=== PATIENT | female | born 1965 | race Caucasian/White ===

== ENCOUNTER 2023-04-24 19:07 | Emergency (ER) | payer OTHER ==
[2023-04-24] MEDS: AMOX TR/POT CLAV 875MG/125MG TABLETS (FP) PO ONE (20:19)
[2023-04-24] MEDS ORDERED: ACETAMINOPHEN 325 MG TABLET (FP) ONE (20:36)
[2023-04-24] MEDS ORDERED: DIPHTH,PERTUSS(ACELL),TET 0.5 ML DISP.SYRIN IM ONE (20:37)
[2023-04-24 20:44] VITALS: TEMP 98.2
[2023-04-24] MEDS: ACETAMINOPHEN 500 MG TABLET (FP) PO ONE (21:45)
[2023-04-24] MEDS: DIPHTH,PERTUSS(ACELL),TET 0.5 ML DISP.SYRIN IM ONE (21:46)
[2023-04-24 21:53] VITALS: BP 135/74; RESP 16; BMI 27.3
[2023-04-24 22:38] VITALS: PULSE 107
== END 2023-04-24 22:30 | disposition home or self-care (01) ==
LOC: JER 19:07
PROC: 3E0234Z Introduction of Serum, Toxoid and Vaccine into Muscle, Percutaneous Approach (ICD-10-PCS; principal; 2023-04-24)
DX: S02.5XXA Fracture of tooth (traumatic), initial encounter for closed fracture (principal); W01.0XXA Fall on same level from slipping, tripping and stumbling without subsequent striking against object, initial encounter
CPT/HCPCS: 70450-TC; 70486-TC; 90471; 90715; 99284-25